=== PATIENT | female | born 1975 ===

== ENCOUNTER 2017-02-08 23:56 | Emergency (ER) | payer OTHER ==
[2017-02-09 00:03] VITALS: BP 106/63; PULSE 62; RESP 18; TEMP 97.8; O2SAT 100
[2017-02-09 02:27] LABS: BASO # 0.1 K/uL (0.0-0.2); EOS # 0.1 K/uL (0.0-0.7); EOS % 1.1 % (0.0-4.0); HEMATOCRIT 29.7 % (34.0-47.0); LYMPH # 1.5 K/uL (1.0-4.3); LYMPH % 27.6 % (20.0-40.0); MEAN CELL VOLUME 69.2 fl (81.0-99.0); MEAN CORPUSCULAR HEMOGLOBIN 21.6 pg (27.0-31.0); MEAN CORPUSCULAR HGB CONC 31.2 g/dL (33.0-37.0); MEAN PLATELET VOLUME 8.4 fl (7.2-11.7); MONO # 0.5 K/uL (0.0-0.8); MONO % 9.4 % (0.0-10.0); NEUT # 3.2 K/uL (1.8-7.0); NEUT % 60.9 % (50.0-75.0); RED CELL DISTRIBUTION WIDTH 17.6 % (11.5-14.5); WHITE BLOOD COUNT 5.3 K/uL (4.8-10.8)
--- NOTE | 2017-02-09 02:40 | ED PDOC ---
HPI: Abdomen Time Seen by Provider: 02/09/17 01:15 Chief Complaint (Nursing): Abdominal Pain Chief Complaint (Provider): Abdominal Pain History Per: Patient History/Exam Limitations: no limitations Onset/Duration Of Symptoms: Hrs (since 18:00 today, 02/08/17) Current Symptoms Are (Timing): Still Present Additional Complaint(s): Chelle Bedoya is a 41 year old female with previous surgical history of sections, who presents to the emergency department with a complaint of upper mid abdominal pain after drinking coffee around 6pm today, 02/08/17. Denies any nausea, vomiting, diarrhea, fever, chills, urinary symptoms or prior incidents. pt denies dark stools or vomiting. PMD: none provided Past Medical History Reviewed: Historical Data Vital Signs: Last Vital Signs Temp 97.8 F 02/09/17 00:01 Pulse 62 02/09/17 00:01 Resp 18 02/09/17 00:01 BP 106/63 02/09/17 00:01 Pulse Ox 100 02/09/17 04:44 - Medical History PMH: No Chronic Diseases - Surgical History Surgical History: - Family History Family History: States: Unknown Family Hx - Social History Current smoker - smoking cessation education provided: No Alcohol: None Drugs: Denies - Home Medications Home Medications: Ambulatory Orders Medication Instructions Recorded Tramadol Hydrochloride [Tramadol] 50 mg PO Q6H PRN #20 tab 02/22/15 Cephalexin [Keflex] 500 mg PO TID #21 tab 11/19/15 Ibuprofen [Motrin] 600 mg PO Q6 PRN #15 tab 11/19/15 Famotidine [Pepcid] 20 mg PO BID PRN #10 tab 02/09/17 - Allergies Allergies/Adverse Reactions: Allergies Allergy/AdvReac Type Severity Reaction Status Date / Time No Known Allergies Allergy Verified 02/21/15 23:02 Review of Systems ROS Statement: Except As Marked, All Systems Reviewed And Found Negative Constitutional: Negative for: Fever, Chills, Other (prior incidents) Gastrointestinal: Positive for: Abdominal Pain (upper mid). Negative for: Nausea, Vomiting, Diarrhea Genitourinary Female: Negative for: Dysuria, Incontinence, Hematuria Physical Exam - Reviewed Nursing Documentation Reviewed: Yes Vital Signs Reviewed: Yes - Physical Exam Appears: Positive for: Well, Non-toxic, No Acute Distress Head Exam: Positive for: ATRAUMATIC Skin: Positive for: Normal Color, Warm, Dry ENT: Positive for: Normal ENT Inspection Cardiovascular/Chest: Positive for: Regular Rate, Rhythm Respiratory: Positive for: Normal Breath Sounds Gastrointestinal/Abdominal: Positive for: Normal Exam, Bowel Sounds, Soft, Tenderness (mild epigastric). Negative for: Guarding, Rebound Back: Positive for: Normal Inspection. Negative for: L CVA Tenderness, R CVA Tenderness Extremity: Positive for: Normal ROM. Negative for: Pedal Edema Neurologic/Psych: Positive for: Alert, Oriented - Laboratory Results Result Diagrams: 02/09/17 01:45 02/09/17 03:16 - ECG O2 Sat by Pulse Oximetry: 100 (RA) Pulse Ox Interpretation: Normal Medical Decision Making Medical Decision Making: Initial Impression: Abdominal pain Initial Plan: * Beta-HCG * Comp metabolic panel * Lipase * Urine C&S * Urinalysis * Reevaluate Time: 04:38 Upon provider reevaluation patient is feeling better, tolerating food PO, has normal liver function, medically stable and requires no further treatment in the ED at this time. Patient will be discharged home with Rx for Pepcid. pt tolerated po. Counseling was provided and all questions were answered regarding diagnosis and need for follow up with PCP. There is agreement to discharge plan. Return if symptoms persist or worsen. Clinical Impression: Gastritis Scribe Attestation: Documented by Beth Mars, acting as a scribe for Bo Landers MD. Provider Scribe Attestation: All medical record entries made by the Scribe were at my direction and personally dictated by me. I have reviewed the chart and agree that the record accurately reflects my personal performance of the history, physical exam, medical decision making, and the department course for this patient. I have also personally directed, reviewed, and agree with the discharge instructions and disposition. Disposition - Clinical Impression Clinical Impression: Abdominal pain, Gastritis - Patient ED Disposition Is Patient to be Admitted: No Doctor Will See Patient In The: Office Counseled Patient/Family Regarding: Studies Performed, Diagnosis, Need For Followup, Rx Given - Disposition Referrals: [facility] [Outside] [facility] [Outside] Disposition: Routine/Home Disposition Time: 03:39 Condition: IMPROVED Additional Instructions: follow up with your primary doctor in 1-2 days avoid caffeine and alcohol and l gabriela flat after eating return to the ED with any worsening or concerning symptom.s Prescriptions: Famotidine [Pepcid] 20 mg PO BID PRN #10 tab PRN Reason: Heartburn Instructions: Gastritis (ED) Print Language: MOHAWK
[2017-02-09 03:23] LABS: RBC URINE 2 /hpf (0-3); URINE BACTERIA RARE (<OCC); URINE BILIRUBIN NEGATIVE (NEGATIVE); URINE BLOOD NEGATIVE (NEGATIVE); URINE COLOR YELLOW (YELLOW); URINE GLUCOSE (UA) NEG (Normal); URINE KETONE NEGATIVE (NEGATIVE); URINE LEUKOCYTE ESTERASE NEG Leu/uL (Negative); URINE PROTEIN NEGATIVE (NEGATIVE); URINE UROBILINOGEN 0.2-1.0 mg/dL (0.2-1.0); WBC URINE 1 /hpf (0-5)
[2017-02-09 03:42] LABS: ALB/GLOB RATIO 1.5 (1.0-2.1); ALKALINE PHOSPHATASE 72 U/L (38-126); ALT/SGPT 34 U/L (9-52); AST/SGOT 24 U/L (14-36); BILIRUBIN,TOTAL 0.1 mg/dl (0.2-1.3); BLOOD UREA NITROGEN 14 mg/dl (7-17); CALCIUM 9.4 mg/dL (8.4-10.2); CARBON DIOXIDE 25 mmol/L (22-30); CHLORIDE 108 mmol/L (98-107); GFR AFRICAN-AMERICAN > 60; GLUCOSE,RANDOM 96 mg/dL (65-105); LIPASE 77 U/L (23-300); SODIUM 142 mmol/l (132-148); TOTAL PROTEIN 7.6 G/DL (6.3-8.2)
== END 2017-02-09 04:57 | disposition home or self-care (01) ==
LOC: H.ER 23:56
DX: K29.70 Gastritis, unspecified, without bleeding (principal)

== ENCOUNTER 2018-03-02 22:52 | Emergency (ER) | payer SELFPAY ==
[2018-03-02 23:11] VITALS: RESP 17; TEMP 98.5
[2018-03-02] MEDS ORDERED: Iohexol 240 (50 ml) PO ONE (23:41)
--- NOTE | 2018-03-02 23:44 | ED PDOC ---
HPI: Abdomen Time Seen by Provider: 03/02/18 23:24 Chief Complaint (Nursing): Abdominal Pain Chief Complaint (Provider): abdominal pain History Per: Patient History/Exam Limitations: no limitations Onset/Duration Of Symptoms: Days (1) Current Symptoms Are (Timing): Still Present Location Of Pain/Discomfort: Diffuse Quality Of Discomfort: "Pain" Associated Symptoms: denies: Fever, Chills, Nausea, Vomiting, Diarrhea Additional Complaint(s): 42 y/o female presents for evaluation of diffuse abdominal pain x 1 day. Patient also reports bright red blood in stool when straining to have small bowel movement today. Denies fever, nausea/vomiting, chest pain, shortness of breath, palpitations, urinary symptoms, recent travel. Past Medical History Reviewed: Historical Data, Nursing Documentation, Vital Signs Vital Signs: Last Vital Signs Temp 98.5 F 03/02/18 23:08 Pulse 69 03/02/18 23:08 Resp 17 03/02/18 23:08 BP 99/59 L 03/02/18 23:08 Pulse Ox 97 03/03/18 01:08 - Medical History PMH: No Chronic Diseases - Surgical History Surgical History: - Family History Family History: States: Unknown Family Hx - Living Arrangements Living Arrangements: With Family - Home Medications Home Medications: Ambulatory Orders Medication Instructions Recorded Tramadol Hydrochloride [Tramadol] 50 mg PO Q6H PRN #20 tab 02/22/15 Cephalexin [Keflex] 500 mg PO TID #21 tab 11/19/15 Ibuprofen [Motrin] 600 mg PO Q6 PRN #15 tab 11/19/15 Famotidine [Pepcid] 20 mg PO BID PRN #10 tab 02/09/17 Docusate Sodium [Colace] 100 mg PO DAILY #20 capsule 03/03/18 Hydrocortisone [Proctosol-Hc] 1 applic RC BID #1 tub 03/03/18 Polyethylene Glycol 3350 [Miralax] 17 gm PO DAILY PRN #7 powd.pack 03/03/18 - Allergies Allergies/Adverse Reactions: Allergies Allergy/AdvReac Type Severity Reaction Status Date / Time No Known Allergies Allergy Verified 02/21/15 23:02 Review of Systems ROS Statement: Except As Marked, All Systems Reviewed And Found Negative Gastrointestinal: Positive for: Abdominal Pain Physical Exam - Reviewed Nursing Documentation Reviewed: Yes Vital Signs Reviewed: Yes - Physical Exam Appears: Positive for: Well, Non-toxic, No Acute Distress Head Exam: Positive for: ATRAUMATIC, NORMAL INSPECTION, NORMOCEPHALIC Skin: Positive for: Normal Color Eye Exam: Positive for: Normal appearance ENT: Positive for: Normal ENT Inspection Cardiovascular/Chest: Positive for: Regular Rate, Rhythm Respiratory: Positive for: Normal Breath Sounds Gastrointestinal/Abdominal: Positive for: Bowel Sounds, Soft, Tenderness ( diffuse), Distended Back: Positive for: Normal Inspection Rectal: Positive for: Hemorrhoids (external, pink 3:00-5:00 position), Other ( exam relief mate Loni Reyes RN) Extremity: Positive for: Normal ROM Neurologic/Psych: Positive for: Alert, Oriented - Laboratory Results Result Diagrams: 03/03/18 00:35 03/03/18 00:35 - ECG O2 Sat by Pulse Oximetry: 97 - Progress ED Course And Treament: labs, urine, CT abd/pelvis EXAM: CT Abdomen and Pelvis With Intravenous Contrast EXAM DATE/TIME: 03/02/2018 11:41 PM CLINICAL HISTORY: 42 years old, female; Pain; Abdominal pain; Generalized; Prior surgery; Surgery date: 6+ months; Surgery type: Tubal ligation; Additional info: Abd pain TECHNIQUE: Axial computed tomography images of the abdomen and pelvis with intravenous contrast. All CT scans at this facility use at least one of these dose optimization techniques: automated exposure control; mA and/or kV adjustment per patient size (includes targeted exams where dose is matched to clinical indication); or iterative reconstruction. CONTRAST: 90 ml of [id number] administered intravenously. COMPARISON: US - TRANSVAGINAL 2015-07-17 16:53 FINDINGS: Lower thorax: No acute findings. ABDOMEN: Liver: Normal. No mass. Gallbladder and bile ducts: Normal. No calcified stones. No ductal dilation. Pancreas: Normal. No ductal dilation. Spleen: Normal. No splenomegaly. Adrenals: Normal. No mass. Kidneys and ureters: Normal. No hydronephrosis. Stomach and bowel: Moderate stool in the colon and No obstruction. No mucosal thickening. Appendix: No evidence of appendicitis. PELVIS: Bladder: Unremarkable as visualized. Reproductive: Question fluid in the endometrium at the fundus ABDOMEN and PELVIS: Intraperitoneal space: Normal. No free air. No significant fluid collection. Bones/joints: No acute fracture. No dislocation. Calcified disc bulge at L5-S1 with possible inferiorly directed central disc herniation Soft tissues: Unremarkable. Vasculature: Normal. No abdominal aortic aneurysm. Lymph nodes: Normal. No enlarged lymph nodes. IMPRESSION: Question fluid in the endometrium. Correlate with menstrual cycle history Otherwise, no definite acute process Question small disc herniation at L5-S1 Moderate stool in the colon. Correlate for constipation Patient educated on findings, discharged with rx colace, miralax, proctosoll-hc Advised high fiber diet, fluids Follow up PMD 2-3 days Return precautions given Disposition - Clinical Impression Clinical Impression: Abdominal pain, Constipation - Patient ED Disposition Is Patient to be Admitted: No Counseled Patient/Family Regarding: Studies Performed, Diagnosis, Need For Followup, Rx Given - Disposition Referrals: [facility] [Outside] Disposition: Routine/Home Disposition Time: 05:17 Condition: STABLE Prescriptions: Docusate Sodium [Colace] 100 mg PO DAILY #20 capsule Hydrocortisone [Proctosol-Hc] 1 applic RC BID #1 tub Polyethylene Glycol 3350 [Miralax] 17 gm PO DAILY PRN #7 powd.pack PRN Reason: Constipation Instructions: Constipation in Adults, Acute Abdomen (Belly Pain), Adult (DC) Print Language: MALAY
[2018-03-03] MEDS ORDERED: Iohexol 240 (50 ml) ONE (00:12)
[2018-03-03 01:10] LABS: BASO % 0.7 % (0.0-2.0); EOS % 0.8 % (0.0-4.0); HEMOGLOBIN 11.8 g/dL (12.0-16.0); LYMPH # 1.5 K/uL (1.0-4.3); LYMPH % 26.6 % (20.0-40.0); MEAN CELL VOLUME 88.2 fl (81.0-99.0); MEAN CORPUSCULAR HEMOGLOBIN 29.2 pg (27.0-31.0); MEAN CORPUSCULAR HGB CONC 33.1 g/dL (33.0-37.0); MEAN PLATELET VOLUME 8.1 fl (7.2-11.7); MONO # 0.6 K/uL (0.0-0.8); MONO % 10.1 % (0.0-10.0); NEUT # 3.4 K/uL (1.8-7.0); NEUT % 61.8 % (50.0-75.0); NRBC % 0.1 % (0.0-0.0); RBC 4.03 Mil/uL (3.80-5.20); RED CELL DISTRIBUTION WIDTH 14.5 % (11.5-14.5); WHITE BLOOD COUNT 5.6 K/uL (4.8-10.8)
[2018-03-03 01:14] LABS: ALB/GLOB RATIO 1.4 (1.0-2.1); ALT/SGPT 33 U/L (9-52); AST/SGOT 31 U/L (14-36); BLOOD UREA NITROGEN 19 mg/dl (7-17); CALCIUM 8.8 mg/dL (8.4-10.2); GFR AFRICAN-AMERICAN > 60; GFR NON-AFRICAN AMERICAN > 60
[2018-03-03] MEDS ORDERED: Sodium Chloride 0.9% 100 ML ONE (02:21)
[2018-03-03] MEDS ORDERED: Iohexol 300 100 ML IJ ONE (02:21)
[2018-03-03 05:12] VITALS: BP 102/66; PULSE 60
[2018-03-03 05:17] VITALS: O2SAT 97
--- NOTE | 2018-03-03 10:32 | CT ---
Date of service: 03/03/2018 PROCEDURE: CT Abdomen and Pelvis with contrast HISTORY: Abdominal pain Negative test (concurrent with this examination). COMPARISON: None. TECHNIQUE: Contrast dose: 90 cc Omnipaque 300. Radiation dose: Total exam DLP = 325.32 mGy-cm. This CT exam was performed using one or more of the following dose reduction techniques: Automated exposure control, adjustment of the mA and/or kV according to patient size, and/or use of iterative reconstruction technique. FINDINGS: LOWER THORAX: Unremarkable. LIVER: Unremarkable. No gross lesion or ductal dilatation. GALLBLADDER AND BILE DUCTS: Unremarkable. PANCREAS: Unremarkable. No gross lesion or ductal dilatation. SPLEEN: Unremarkable. ADRENALS: Unremarkable. No mass. KIDNEYS AND URETERS: Unremarkable. No hydronephrosis. No solid mass. VASCULATURE: Unremarkable. No aortic aneurysm. BOWEL: Constipation without fecal impaction or obstruction. APPENDIX: Normal appendix. PERITONEUM: Unremarkable. No free fluid. No free air. LYMPH NODES: Unremarkable. No enlarged lymph nodes. BLADDER: Unremarkable. REPRODUCTIVE: Unremarkable. BONES: No acute fracture. OTHER FINDINGS: None. IMPRESSION: No significant or acute findings to account for/ related to the clinical presentation. Additional benign and/or incidental findings described above. Concordant results (preliminary interpretation) provided by Thomas-Krenn. Procedure Completed: 02:30. Preliminary ([facility]Rad) Report: Dictated and Authenticated: 04:48. Final Interpretation: 10:31. March 03, 2018.
== END 2018-03-03 05:25 | disposition home or self-care (01) ==
LOC: H.ER 22:52
DX: K59.00 Constipation, unspecified (principal); R10.9 Unspecified abdominal pain
CPT/HCPCS: 74177; 80053; 81025; 83690; 85025; 99283; G0328; Q9966; Q9967